=== PATIENT | female | born 1965 | race Two or more races ===

== ENCOUNTER 2025-02-05 17:55 | Emergency (ER) | payer MEDICAID ==
[~2025-02-05] VITALS: Ht 165.1 cm; Wt 72.6 kg
[2025-02-05] MEDS ORDERED: ONDANSETRON 4 MG TAB.RAPDIS ONE (18:53)
[2025-02-05] MEDS: ONDANSETRON 4 MG TAB.RAPDIS PO ONE (18:54)
[2025-02-05] MEDS: IV NS 0.9% 1,000 ML BAG IV ONE (19:34)
[2025-02-05 19:38] LABS: BASOPHILS % (AUTO) 0.2 % (0.0-2.0); EOSINOPHILS # (AUTO) 0.2 K/uL (0.0-0.7); EOSINOPHILS % (AUTO) 1.3 % (0.0-6.0); HEMATOCRIT 40 % (33-45); HEMOGLOBIN 13.6 g/dL (11.5-14.8); LYMPHOCYTES % (AUTO) 21.4 % (20.0-44.0); MEAN CORPUSCULAR HEMOGLOBIN 30 PG (26.0-33.0); MEAN CORPUSCULAR HGB CONC 34 g/dl (31.0-36.0); MEAN CORPUSCULAR VOLUME 90 fL (82-100); MONOCYTES # (AUTO) 0.5 K/uL (0.1-1.30); MONOCYTES % (AUTO) 3.5 % (2.0-12.0); NEUTROPHILS # (AUTO) 10.3 K/uL (1.8-8.9); NEUTROPHILS % (AUTO) 73.6 % (43.0-81.0); PLATELET COUNT (AUTO) 268 K/uL (150-450); RED BLOOD CELL COUNT(AUTO) 4.48 MIL/uL (4.0-5.2); RED CELL DISTRIBUTION WIDTH 14.1 % (11.5-15.0); WHITE BLOOD COUNT (AUTO) 13.9 K/uL (4.3-11.0)
[2025-02-05 19:43] LABS: CALCIUM, SERUM 9.4 mg/dL (8.5-10.1); CREATININE 0.7 mg/dL (0.6-1.3); POTASSIUM 4.1 mmol/L (3.5-5.1)
[2025-02-05] MEDS ORDERED: ONDANSETRON HCL/PF 4 MG/2 ML VIAL ONE (19:44)
[2025-02-05] MEDS: ONDANSETRON HCL/PF 4 MG/2 ML VIAL IV ONE (19:48)
[2025-02-05] MEDS ORDERED: MECLIZINE HCL 25 MG TABLET ONE (20:11)
[2025-02-05] MEDS: MECLIZINE HCL 12.5 MG TABLET PO ONE (20:17)
[2025-02-05] MEDS ORDERED: ONDA4TAB5 PO (21:06)
[2025-02-05] MEDS ORDERED: MECL-159 PO (21:06)
[2025-02-05 21:14] VITALS: BP 136/80; TEMP 98.9; O2SAT 98
== END 2025-02-05 21:15 | disposition home or self-care (01) ==
LOC: ER 18:05
DX: R42 Dizziness and giddiness (principal); R11.2 Nausea with vomiting, unspecified; I10 Essential (primary) hypertension; E11.9 Type 2 diabetes mellitus without complications; Z79.899 Other long term (current) drug therapy
CPT/HCPCS: 99284; 96374; 96361; 93005; 85025; 80048; 36415; 82962; J8597; J2405; Q0162